=== PATIENT | female | born 1950 | race Caucasian/White ===

== ENCOUNTER 2018-06-23 12:57 | Emergency (ER) | payer OTHER, MEDICARE ==
[~2018-06-23] VITALS: Ht 157.5 cm; Wt 65.3 kg
[2018-06-23 13:00] VITALS: BP 136/96
[2018-06-23] MEDS ORDERED: ACETAMINOPHEN 325 MG TABLET ONE (15:02)
[2018-06-23] MEDS: ACETAMINOPHEN 325 MG TABLET PO ONE (15:06)
== END 2018-06-23 15:58 | disposition home or self-care (01) ==
LOC: ER 12:59
DX: R07.89 Other chest pain (principal); M25.562 Pain in left knee; M25.531 Pain in right wrist; Z88.2 Allergy status to sulfonamides; Z86.73 Personal history of transient ischemic attack (TIA), and cerebral infarction without residual deficits; V49.49XA Driver injured in collision with other motor vehicles in traffic accident, initial encounter; Y93.89 Activity, other specified; Y92.413 State road as the place of occurrence of the external cause; Y99.8 Other external cause status
CPT/HCPCS: 71045-TC; 73110; 73564-TC

== ENCOUNTER 2019-10-11 01:24 | Inpatient (IN) | payer MEDICARE, OTHER ==
[~2019-10-11] VITALS: Ht 157.5 cm; Wt 68.9 kg
[2019-10-11] VITALS (8 sets, daily range): BP systolic 118–157; BP diastolic 69–85
--- NOTE | 2019-10-11 01:35 | NUR ---
PT BIBA C/O DIZZINESS X 1 HOUR AFTER GETTING UP TO GO THE BATHROOM. PT AAOX4,VSS, RESPIRATIONS EVEN AND UNLABORED ON RA W/ NAD NOTED. PT CONNECTED TO THE AN/SSN 2 4 OPERATOR AND POX
[2019-10-11] MEDS ORDERED: MECLIZINE HCL 25 MG TABLET ONE (01:44)
[2019-10-11 01:59] LABS: BASOPHILS # (AUTO) 0.1 /CMM (0.0-0.2); BASOPHILS % (AUTO) 1.7 % (0.0-2.0); EOSINOPHILS % (AUTO) 3.6 % (0.0-6.0); HEMATOCRIT 42 % (33-45); LYMPHOCYTES # (AUTO) 2.1 /CMM (0.8-4.8); LYMPHOCYTES % (AUTO) 38.5 % (20.0-44.0); MEAN CORPUSCULAR HGB CONC 33 g/dl (31.0-36.0); MEAN CORPUSCULAR VOLUME 90 fL (82-100); MONOCYTES # (AUTO) 0.5 /CMM (0.1-1.30); MONOCYTES % (AUTO) 8.3 % (2.0-12.0); NEUTROPHILS # (AUTO) 2.6 /CMM (1.8-8.9); NEUTROPHILS % (AUTO) 47.9 % (43.0-81.0); PLATELET COUNT (AUTO) 212 /CMM (150-450); RED BLOOD CELL COUNT(AUTO) 4.65 MIL/uL (4.0-5.2); WHITE BLOOD COUNT (AUTO) 5.4 K/uL (4.3-11.0)
[2019-10-11] MEDS ORDERED: MECLIZINE HCL 12.5 MG TABLET PO ONE (02:00)
[2019-10-11 02:11] LABS: CALCIUM, SERUM 9.4 mg/dL (8.5-10.1); CREATININE 0.7 mg/dL (0.6-1.3); POTASSIUM 3.8 mmol/L (3.5-5.1)
--- NOTE | 2019-10-11 02:12 | NUR ---
PATIENT TAKEN TO CT
--- NOTE | 2019-10-11 02:24 | NUR ---
PT BACK FROM CT
[2019-10-11] MEDS ORDERED: DIAZEPAM 5 MG TABLET ONE (02:56)
[2019-10-11] MEDS: DIAZEPAM 10 MG TABLET PO ONE ×2 (02:59→03:10)
--- NOTE | 2019-10-11 03:13 | NUR ---
EKG AT BEDSIDE
[2019-10-11] MEDS ORDERED: ASPIRIN 325 MG TABLET ONE (03:29)
[2019-10-11] MEDS ORDERED: ASPIRIN 81 MG TAB.CHEW ONE (03:29)
[2019-10-11] MEDS ORDERED: ASPIRIN 81 MG TAB.CHEW PO ONE (03:30)
[2019-10-11] MEDS ORDERED: ATOR40TA PO (03:34)
[2019-10-11] MEDS ORDERED: OMEP20CA15 PO (03:34)
[2019-10-11] MEDS ORDERED: ASPI-605 PO (03:52)
[2019-10-11] MEDS ORDERED: BRIM5DRO3 EACHEYE (03:52)
[2019-10-11] MEDS ORDERED: LATA2.5D7 EACHEYE (03:52)
[2019-10-11] MEDS ORDERED: Z GUARD REMEDY 2 OZ OINT TP PRN (04:30)
[2019-10-11] MEDS ORDERED: ACETAMINOPHEN 325 MG TABLET PO PRN (04:30)
[2019-10-11] MEDS ORDERED: MAGNESIUM HYDROXIDE 30 ML UDC PO PRN (04:30)
[2019-10-11] MEDS ORDERED: MAG HYDROX/AL HYDROX/SIMETH 30 ML UDC PO PRN (04:30)
[2019-10-11] MEDS ORDERED: ONDANSETRON HCL/PF 4 MG/2 ML VIAL IVP PRN (04:30)
--- NOTE | 2019-10-11 04:37 | NUR ---
REPORT GIVEN TO TITO TINSLEY
--- NOTE | 2019-10-11 04:40 | NUR ---
CASH MANAGEMENT ASSOCIATE NOTES RECIVED REPORT FROM BALL FRINGE MACHINE OPERATOR LUIS THAT PATIENT WILL BE COMING TO ROOM 324-2
--- NOTE | 2019-10-11 05:00 | NUR ---
TELE/ RN NOTES PATIENT ARRIVED TO UNIT VIA GURNEY. PATIENT IS ALERT AND ORIENTED X 4, IN NO SIGNS OF DISTRESS. BREATHING IS EVEN AND UNLABORED. VITALS SIGNS ARE WITHIN NORMAL LIMITS. PATIENT SKIN IS INTACT, NO OPEN WOUNDS OR REDNESS. PATIENT STATES NO PAIN AT THE MOMENT, NO CHEST PAIN NOTED. TELE READING AT NSR 70 BPM. SAFETY MEASURES ARE IN PLACE. WILL CONTINUE TO MONITOR.
[2019-10-11] MEDS: ENOXAPARIN SODIUM 40 MG/0.4 ML DISP.SYRIN SQ SCH (05:04)
--- NOTE | 2019-10-11 07:00 | NUR ---
TELE/RN CLOSING NOTES PATIENT IS RESTING IN BED ALERT AND ORIENTED X 4. NO SIGNS OF DISTRESS NOTED. PATIENT STATES NO PAIN AT THE MOMENT. PATIENT IS COMFORTABLE. PATIENT HAS NO SIGNS OF SOB OR RESPIRATORY DISTRESS. PATIENTS BREATHING IS EVEN AND UNLABORED. PATIENT HAS LEFT FOREARM #18 G SL INTACT AND FLUSHING WELL. PATIENT IS ON ROOM AIR TOLERATING WELL. TELE READING IS NSR 70 BPM. SAFETY MEASURES ARE IN PLACE BED IS IN LOW POSITION LOCKED, SIDE RAILS X 2 AND CALL LIGHT WITHIN REACH. WILL ENDORSE CARE TO DAY SHIFT.
[2019-10-11] MEDS ORDERED: BRIMONIDINE TARTRATE OPHT SOLN 5 ML BOTTLE EACHEYE SCH (09:00)
[2019-10-11] MEDS ORDERED: OMEPRAZOLE 20 MG CAPSULE.DR PO SCH (09:00)
[2019-10-11] MEDS ORDERED: METOPROLOL TARTRATE 50 MG TABLET PO SCH (09:00)
[2019-10-11] MEDS ORDERED: ATORVASTATIN 40 MG TABLET PO SCH (09:00)
[2019-10-11] MEDS ORDERED: PANTOPRAZOLE 40 MG TABLET.DR PO SCH (09:00)
[2019-10-11] MEDS: ALPHAGAN P 0.1% EACHEYE SCH ×3 (09:30→18:52)
[2019-10-11] MEDS ORDERED: MECLIZINE HCL 12.5 MG TABLET PO PRN (12:00)
[2019-10-11] MEDS: OMEPRAZOLE 20 MG CAPSULE.DR PO SCH (12:01)
--- NOTE | 2019-10-11 13:17 | NUR ---
RN NOTE PATIENT STATED THAT SHE IS VEGAN. CHARLOTTE LEONARDO IS MADE AWARE AND RECEIVED NEW ORDER OF REGULAR VEGAN DIET ORDER. THE ORDER IS NOTED AND CARRIED OUT.
--- NOTE | 2019-10-11 13:38 | NUR ---
PATIENT IS REFUSING CT ANGIO ,PER PATIENT'S NURSE.
--- NOTE | 2019-10-11 15:00 | NUR ---
RN NOTE CHARLOTTE LEONARDO IS MADE AWARE OF PATIENT REFSUING
--- NOTE | 2019-10-11 15:00 | NUR ---
RN NOTE PATIENT REFUSED CT ANGIO AND CHARLOTTE LEONARDO IS MADE AWARE.
--- NOTE | 2019-10-11 17:00 | NUR ---
RN NOTE MEAGAN PER PATIENT`S REQUEST TOOK HOME HER 5 BANK CARDS ( LAST DIGITS [id number], [id number], [id number] [phone] [id number]), ID CARD, PASSPORT CARD AND $209 HO.
[2019-10-11 18:01] LABS: BILIRUBIN,URINE NEGATIVE (NEGATIVE); BLOOD, URINE NEGATIVE Ery/uL (NEGATIVE); COLOR,URINE YELLOW (YELLOW); KETONES,URINE NEGATIVE (NEGATIVE); LEUKOCYTE ESTERASE ,URINE TRACE (NEGATIVE); NITRITE, URINE NEGATIVE (NEGATIVE); PROTEIN,URINE NEGATIVE (NEGATIVE); UGLUCOSE NEGATIVE (NEGATIVE); UROBILINOGEN,URINE 0.2 EU/dL (0.2)
[2019-10-11 18:26] LABS: APPEARANCE,URINE SLIGHTLY HAZY (CLEAR)
[2019-10-11 18:27] LABS: BACTERIA,URINE None seen /HPF (None Seen); RBC,URINE 0-2 /HPF (0-2); SQUAMOUS EPITHELIAL CELL,UR Few /HPF (None Seen)
[2019-10-11] MEDS: LATANOPROST EYE DROP 0.005% 2.5 ML BOTTLE EACHEYE SCH (18:32)
--- NOTE | 2019-10-11 18:57 | NUR ---
TELE/RN NOTE ASSISTED THE PATIENT UP FROM BED WITH 2 NURSE ASSIST AND FWW FOR SAFETY, HOWEVER, THE PATIENT COMPLAINED OF DIZZINESS AND NAUSEA WITH WHEN CHANGING POSITIONS FROM SUPINE, SITTING AND STANDING. ASSISTED THE PATIENT BACK TO BED, MADE HER FEEL COMFORTABLE IN BED AND SIDE RAILS UP X3, BED ALARM ON. CALL LIGHT WITHIN REACH. WILL ENDORSE TO OFFICE COORDINATOR.
--- NOTE | 2019-10-11 19:18 | NUR ---
MS RN NOTES LIPITOR NOT GIVEN AT 1800 SHE REQUEST TO TAKE IT AT BED TIME ONCOMING NURSE NOTIFIED SIEVE MAKER MALISSA FARIA
--- NOTE | 2019-10-11 19:36 | NUR ---
METER READER NOTES PATIENT IN BED, AWAKE, ALERT AND ORIENTED X 4. BREATHING EVEN AND UNLABORED ON ROOM AIR. SHOWS NO SIGNS OF ACUTE RESPIRATORY DISTRESS, NO ACUTE PAIN. TELE MONITOR SR 70'S. L WRIST 20G ITS CLEAN DRY AND INTACT. SHOWS NO SIGNS OF INFILTRATION, NO REDNESS. SAFETY PRECAUTIONS IN PLACE. INFORMED PT NOT TO GET UP WITHOUT ASSISTANCE. PT IS AWARE. BED IN LOWEST POSITION, LOCKED, AND CALL LIGHT KEPT WITHIN REACH. WILL CONTINUE TO MONITOR.
[2019-10-11] MEDS: ATORVASTATIN 40 MG TABLET PO SCH (19:57)
--- NOTE | 2019-10-11 23:35 | NUR ---
MS RN NOTES KHRIS ORDERED COVID19 SWAB FOR PT BECAUSE OF LOW GRADE FEVER. ORDER SWAB AND WILL FOLLOW THROUGH.
[2019-10-12] VITALS: BP 120/70
[2019-10-12 04:00] VITALS: BP 133/72
[2019-10-12] MEDS: ENOXAPARIN SODIUM 40 MG/0.4 ML DISP.SYRIN SQ SCH (05:13)
--- NOTE | 2019-10-12 06:35 | NUR ---
COMPRESSED AIR PILE DRIVER OPERATOR NOTES PATIENT IN BED, RESTING, ALERT AND ORIENTED X 4. BREATHING EVEN AND UNLABORED ON ROOM AIR. SHOWS NO SIGNS OF ACUTE RESPIRATORY DISTRESS, NO ACUTE PAIN. TELE MONITOR SR. L WRIST 20G ITS CLEAN DRY AND INTACT. SHOWS NO SIGNS OF INFILTRATION, NO REDNESS. ALL DUE MEDICATIONS GIVEN. SAFETY PRECAUTIONS IN PLACE. BED IN LOWEST POSITION, LOCKED, AND CALL LIGHT KEPT WITHIN REACH. WILL ENDORSE TO ONCOMING NURSE.
[2019-10-12] MEDS: OMEPRAZOLE 20 MG CAPSULE.DR PO SCH (06:38)
[2019-10-12 06:40] LABS: CALCIUM, SERUM 9.2 mg/dL (8.5-10.1); CREATININE 0.9 mg/dL (0.6-1.3); MAGNESIUM 2.3 mg/dL (1.8-2.4); PHOSPHORUS 4.2 mg/dL (2.5-4.9); POTASSIUM 3.9 mmol/L (3.5-5.1)
[2019-10-12 06:51] LABS: THYROID STIMULATING HORMONE 0.962 uIU/mL (0.358-3.74)
[2019-10-12 07:00] LABS: BASOPHILS # (AUTO) 0.1 /CMM (0.0-0.2); BASOPHILS % (AUTO) 1.2 % (0.0-2.0); EOSINOPHILS % (AUTO) 3.8 % (0.0-6.0); HEMATOCRIT 42 % (33-45); HEMOGLOBIN 13.8 g/dL (11.5-14.8); LYMPHOCYTES # (AUTO) 2.1 /CMM (0.8-4.8); LYMPHOCYTES % (AUTO) 41.6 % (20.0-44.0); MEAN CORPUSCULAR HGB CONC 33 g/dl (31.0-36.0); MEAN CORPUSCULAR VOLUME 90 fL (82-100); MONOCYTES # (AUTO) 0.5 /CMM (0.1-1.30); NEUTROPHILS # (AUTO) 2.2 /CMM (1.8-8.9); NEUTROPHILS % (AUTO) 44.4 % (43.0-81.0); PLATELET COUNT (AUTO) 219 /CMM (150-450); RED BLOOD CELL COUNT(AUTO) 4.66 MIL/uL (4.0-5.2)
[2019-10-12 08:00] VITALS: BP_SYST 119; BP_SYST 174; BP_DIAS 102; BP_DIAS 72
[2019-10-12] MEDS: ALPHAGAN P 0.1% EACHEYE SCH ×3 (08:43→17:49)
[2019-10-12] MEDS: ASPIRIN EC 81 MG TABLET.DR PO SCH (08:45)
--- NOTE | 2019-10-12 08:58 | NUR ---
EARLY CHILDHOOD OPENING NOTE Received patient awake in bed. A/Ox4. PERRLA. Breath sounds even, clear, unlabored. No SOB or distress. No pain. Bowel sounds normoactive. Abdomen soft and round. Skin warm, pink, dry, appropriate for ethnicity. Pulses 2+. No edema noted. IV site left wrist 20g patent and intact. No signs of infiltration. SCD pumps in place. Safety precautions in place. Bed in low position, wheels locked, side rails up x2, call light within reach.
[2019-10-12 09:23] VITALS: BP 119/72
[2019-10-12] MEDS ORDERED: LORAZEPAM INJ 2 MG/ML VIAL IV ONE (13:30)
[2019-10-12 16:00] VITALS: BP 110/70
[2019-10-12] MEDS: LATANOPROST EYE DROP 0.005% 2.5 ML BOTTLE EACHEYE SCH (17:47)
[2019-10-12] MEDS: ATORVASTATIN 40 MG TABLET PO SCH (17:48)
--- NOTE | 2019-10-12 18:20 | NUR ---
COPY LATHE TENDER CLOSING NOTE Patient awake in bed, A/O x4. No signs of SOB or distress. No pain. Breathing even, clear, unlabored. IV site left forearm 18g SL, patent and intact. On room air satting at 95%. Tele monitor NSR in the 70s. SCDs in place. 1 bowel movement, brown and medium. Urinary void 3x in bedpan clear, yellow, no sediment. Safety measures in place, bed in low position, wheels locked, side rails up x2, call light within reach. Will endorse to night nurse.
--- NOTE | 2019-10-12 19:05 | NUR ---
TITO ANNA OPENING NOTES RECEIVED PATIENT IN BED AWAKE ALERT AND ORIENTED X 4 Addendum: 10/12/19 at 0181 by ZEINAB MEJIA RN DISREGARD NOTE
--- NOTE | 2019-10-12 19:05 | NUR ---
RN MS OPENING NOTES RECEIVED PATIENT IN BED AWAKE ALERT AND ORIENTED X 4, RESPIRATIONS EVEN AND UNLABORED WITH EQUAL RISE AND FALL OF CHEST, DENIES ANY PAIN OR DISCOMFORT AT THIS TIME, IV SITE TO LEFT WRIST #20G SL INTACT AND PATENT, NO REDNESS, NO INFILTRATION PRESENT, ORIENTED TO STAFF AND CALL LIGHT AND KEPT WITHIN REACH, FLUIDS AND TOILETING NEEDS ATTENDED, REMAINS COMFORTABLE AT THIS TIME, WILL CONTINUE TO MONITOR AND ATTEND TO NEEDS.SAFETY PRECAUTIONS IN PLACE, LOW BED AND LOCKED.
[2019-10-12 20:00] VITALS: BP 128/61
[2019-10-13] MEDS: ENOXAPARIN SODIUM 40 MG/0.4 ML DISP.SYRIN SQ SCH (04:50)
--- NOTE | 2019-10-13 06:30 | NUR ---
RN MS CLOSING NOTES PATIENT IN BED AWAKE ALERT AND ORIENTED X 4, RESPIRATIONS EVEN AND UNLABORED WITH EQUAL RISE AND FALL OF CHEST, DENIES ANY PAIN OR DISCOMFORT AT THIS TIME, IV SITE TO LEFT WRIST #20G SL INTACT AND PATENT, NO REDNESS, NO INFILTRATION PRESENT, CALL LIGHT KEPT WITHIN REACH, FLUIDS AND TOILETING NEEDS ATTENDED, OFFERED LINEN AND GOWN CHANGE AT THIS TIME PATIENT DID NOT WANT, REMAINS COMFORTABLE AT THIS TIME, WILL CONTINUE TO MONITOR AND ATTEND TO NEEDS.SAFETY PRECAUTIONS IN PLACE, LOW BED AND LOCKED. WILL ENDORSE TO NEXT SHIFT.
[2019-10-13] MEDS: OMEPRAZOLE 20 MG CAPSULE.DR PO SCH (06:42)
[2019-10-13 07:00] LABS: BASOPHILS # (AUTO) 0.1 /CMM (0.0-0.2); BASOPHILS % (AUTO) 0.9 % (0.0-2.0); EOSINOPHILS % (AUTO) 3.9 % (0.0-6.0); HEMATOCRIT 43 % (33-45); LYMPHOCYTES # (AUTO) 2.2 /CMM (0.8-4.8); LYMPHOCYTES % (AUTO) 34.6 % (20.0-44.0); MEAN CORPUSCULAR HGB CONC 33 g/dl (31.0-36.0); MEAN CORPUSCULAR VOLUME 90 fL (82-100); MONOCYTES # (AUTO) 0.5 /CMM (0.1-1.30); MONOCYTES % (AUTO) 8.5 % (2.0-12.0); NEUTROPHILS # (AUTO) 3.3 /CMM (1.8-8.9); NEUTROPHILS % (AUTO) 52.1 % (43.0-81.0); PLATELET COUNT (AUTO) 219 /CMM (150-450); RED BLOOD CELL COUNT(AUTO) 4.72 MIL/uL (4.0-5.2); WHITE BLOOD COUNT (AUTO) 6.4 K/uL (4.3-11.0)
[2019-10-13 07:33] LABS: CALCIUM, SERUM 9.2 mg/dL (8.5-10.1); CREATININE 0.7 mg/dL (0.6-1.3); MAGNESIUM 2.2 mg/dL (1.8-2.4); PHOSPHORUS 4.1 mg/dL (2.5-4.9); POTASSIUM 3.4 mmol/L (3.5-5.1)
[2019-10-13 08:00] VITALS: BP 128/72
--- NOTE | 2019-10-13 08:00 | NUR ---
MS RN OPENING NOTE Received patient awake in bed. A/O x4. Pulses 2+. Breathing even, clear, unlabored. No signs of SOB or distress. Patient denies pain, fever, chills, nausea, vomiting. Abdomen soft, round. Bowel sound sounds normoactive. IV site left wrist 20g saline locked. IV site clean, patent, intact. Bed in low position, wheels locked, side rails up x2, call light within reach.
[2019-10-13] MEDS: ASPIRIN EC 81 MG TABLET.DR PO SCH (08:24)
[2019-10-13] MEDS: ALPHAGAN P 0.1% EACHEYE SCH ×2 (08:28→12:32)
[2019-10-13] MEDS ORDERED: POTASSIUM CHLORIDE 20 MEQ TAB.PRT.SR PO ONE (11:30)
[2019-10-13] MEDS ORDERED: MECL-182 PO (12:28)
--- NOTE | 2019-10-13 16:59 | NUR ---
MS CARE TAKER NOTE Patient discharged to home with family. All belongings and valuables reviewed with patient, no missing items. Sent home with walker. Reviewed discharge instructions and patient teachings. Patient made aware of new medication prescription and pharmacy to be picked up at. IV removed 20g left hand, clean and intact. Patient discharged via personal vehicle with family member.
== END 2019-10-13 16:30 | disposition home health service (06) | DRG 149 ==
LOC: ER 01:25 → TELE 04:30 → MED 10-12 11:20
PROVIDERS: ADMIT Nurse Practitioner Acute Care
DX: H81.10 Benign paroxysmal vertigo, unspecified ear (principal); Z86.73 Personal history of transient ischemic attack (TIA), and cerebral infarction without residual deficits; I10 Essential (primary) hypertension; I25.10 Atherosclerotic heart disease of native coronary artery without angina pectoris; N81.4 Uterovaginal prolapse, unspecified; Z91.013 Allergy to seafood; E78.5 Hyperlipidemia, unspecified
CPT/HCPCS: 36415; 70450-TC; 70544-TC; 70551-TC; 71045-TC; 80048-TC; 80061-TC; 81000-TC; 83735-TC; 84100-TC; 84443-TC; 84484-TC; 85025-TC; 87081-TC; 87086-TC; 93307-TC; 97116-TC; 97530-TC; G0378; J1650; J2060; J8597

== ENCOUNTER 2021-01-28 21:53 | Emergency (ER) | payer BC, MEDICARE ==
[~2021-01-28] VITALS: Ht 157.5 cm; Wt 59.0 kg
[~2021-01-28 21:53] MED LIST: ASPI-605 PO; ATOR40TA PO; BRIM5DRO3 EACHEYE; LATA2.5D15 EACHEYE; MECL-182 PO; OMEP20CA15 PO
--- NOTE | 2021-01-28 22:10 | NUR ---
PATIENT BIBRA FROM HOME C/O DIZZINESS FOR THE PAST HOUR. PATIENT IS A/O X 3, RR EVEN AND UNLABORED, NO SOB NOTED, PATIENT CONNECETED TO CLAIM PROCESSOR AND POX
--- NOTE | 2021-01-28 22:31 | NUR ---
AT PT'S BEDSIDE
[2021-01-28] MEDS ORDERED: DIAZEPAM 5 MG/ML 2 ML DISP.SYRIN ONE (22:41)
--- NOTE | 2021-01-28 22:45 | NUR ---
URINE COLLECTED AND SENT TO LAB
--- NOTE | 2021-01-28 22:55 | NUR ---
LFA #20G S/L; PATENT AND INTACT/ NS INFUSING. BLOOD DRAWN AND GIVEN TO LAB
[2021-01-28] MEDS ORDERED: DIAZEPAM 5 MG/ML 2 ML DISP.SYRIN IV ONE (23:00)
[2021-01-28] MEDS ORDERED: IV NS 0.9% 1,000 ML BAG IV ONE (23:00)
[2021-01-28 23:01] LABS: BASOPHILS # (AUTO) 0.1 K/uL (0.0-0.2); BASOPHILS % (AUTO) 0.8 % (0.0-2.0); EOSINOPHILS % (AUTO) 1.6 % (0.0-6.0); HEMATOCRIT 39 % (33-45); HEMOGLOBIN 13.1 g/dL (11.5-14.8); LYMPHOCYTES # (AUTO) 1.5 K/uL (0.8-4.8); LYMPHOCYTES % (AUTO) 16.3 % (20.0-44.0); MEAN CORPUSCULAR HGB CONC 34 g/dl (31.0-36.0); MEAN CORPUSCULAR VOLUME 91 fL (82-100); MONOCYTES # (AUTO) 0.4 K/uL (0.1-1.30); MONOCYTES % (AUTO) 4.6 % (2.0-12.0); NEUTROPHILS % (AUTO) 76.7 % (43.0-81.0); PLATELET COUNT (AUTO) 243 K/uL (150-450); RED BLOOD CELL COUNT(AUTO) 4.27 MIL/uL (4.0-5.2); WHITE BLOOD COUNT (AUTO) 9.1 K/uL (4.3-11.0)
[2021-01-28 23:33] LABS: BILIRUBIN,URINE NEGATIVE (NEGATIVE); COLOR,URINE YELLOW (YELLOW); LEUKOCYTE ESTERASE ,URINE SMALL (NEGATIVE); NITRITE, URINE NEGATIVE (NEGATIVE); PROTEIN,URINE NEGATIVE (NEGATIVE); UGLUCOSE NEGATIVE (NEGATIVE); UROBILINOGEN,URINE 0.2 EU/dL (0.2)
[2021-01-28 23:35] LABS: BACTERIA,URINE Few /HPF (None Seen); RBC,URINE 0-2 /HPF (0-2); SQUAMOUS EPITHELIAL CELL,UR Few /HPF (None Seen)
[2021-01-28 23:37] LABS: ALANINE AMINOTRANSFERASE 80 U/L (12-78); ALBUMIN 3.3 g/dL (3.4-5.0); ALKALINE PHOSPHATASE 87 U/L (46-116); ASPARTATE AMINOTRANSFERASE 53 U/L (15-37); BILIRUBIN,DIRECT 0.1 mg/dL (0.0-0.2); BILIRUBIN,TOTAL 0.3 mg/dL (0.2-1.0); CALCIUM, SERUM 8.7 mg/dL (8.5-10.1); CARBON DIOXIDE 30 mmol/L (21-32); CHLORIDE 104 mmol/L (98-107); CREATININE 0.8 mg/dL (0.6-1.3); GLUCOSE 108 mg/dL (74-106); POTASSIUM 3.7 mmol/L (3.5-5.1); SODIUM SERUM 142 mmol/L (136-145); UREA NITROGEN, BLOOD 12 mg/dL (7-18)
[2021-01-29] MEDS ORDERED: NITR100C6 PO (01:19)
[2021-01-29] MEDS ORDERED: MECL-182 PO (01:20)
--- NOTE | 2021-01-29 01:28 | NUR ---
Patient discharged to home in stable condition. Rx and Written and verbal after care instructions given. Patient verbalizes understanding of instruction.
[2021-01-29 01:29] VITALS: BP 134/72
== END 2021-01-29 01:29 | disposition home or self-care (01) ==
LOC: ER 21:55
DX: R42 Dizziness and giddiness (principal); N39.0 Urinary tract infection, site not specified; G43.909 Migraine, unspecified, not intractable, without status migrainosus; Z86.73 Personal history of transient ischemic attack (TIA), and cerebral infarction without residual deficits; Z88.8 Allergy status to other drugs, medicaments and biological substances; Z88.2 Allergy status to sulfonamides; Z91.013 Allergy to seafood; Z79.899 Other long term (current) drug therapy; Z79.82 Long term (current) use of aspirin
CPT/HCPCS: 36415; 70450; 71045; 80048; 80076; 81001; 82962; 84484; 85025; 87086; 93005; 96361; 96374; 99285; J3360; J7030